=== PATIENT | female | born 1995 | race Caucasian/White ===

== ENCOUNTER 2022-04-07 00:30 | Inpatient (IN) | payer MEDICAID, SELFPAY ==
[2022-04-07 00:49] VITALS: BMI 23.0
[2022-04-07 01:05] LABS: Basophils # 0.1 K/mm3 (0-0.2); Basophils % 0.5 % (0.1-2.0); Eosinophils % 0.3 % (0.1-12.0); Hematocrit 31.8 % (37.0-47.0); Hemoglobin 10.1 g/dL (12.2-16.2); Lymphocytes # 1.7 K/mm3 (0.7-4.5); Lymphocytes % 17.3 % (10-50); Mean Corpuscular HGB Conc 31.8 g/dL (31.8-35.4); Mean Corpuscular Hemoglobin 26.6 pg (27.0-31.2); Mean Corpuscular Volume 83.5 fl (81-99); Monocytes # 0.6 K/mm3 (0.1-1.0); Monocytes % 5.6 % (1.7-9.3); Neutrophils # 7.7 K/mm3 (1.8-7.8); Neutrophils % 76.3 % (37.0-80.0); Platelet Count 383 K/mm3 (142-424); Red Blood Count 3.81 M/mm3 (4.20-5.40); Red Cell Distribution Width 18.2 % (11.5-17.5); White Blood Count 10.1 K/mm3 (4.8-10.8)
--- NOTE | 2022-04-07 01:27 | EXP.HP ---
History of Present Illness *Admission Date: 04/07/22 *Reason for visit:: contractions *History of present illness: 26 yo presented at 36 5/7 by stated DEBORAH with contractions and active labor care at [place] and no records available at time of admission or delivery Onset of contractions 23:30 and 8cm dilation upon presentation to [facility] OB history significant for one previous cs with 3 previous successful Shortly after admission, amniotomy was performed with clear fluid noted and she progressed to rapid vaginal delivery She reports that was uncomplicated She reported GBS positive and ampicillin was started after IV placement per patient report [facility] Social History Smoking Status: Never smoker alcohol intake: never current occupational status: unemployed Travel in the last 8 weeks: None Review of Systems Review of Systems Review of systems:: pertinent systems reviewed and negative unless documented below Constitutional Constitutional: Reports system reviewed and no additional complaints, except as documented and Denies headache(s) ENT Ears, Nose, Mouth, and Throat: Denies headache(s) *Genitourinary Genitourinary: Denies abnormal vaginal bleeding and Reports other (+ contractions) *Neurologic Neurologic: Denies headache(s) and Denies other visual disturbances Meds Home Medications and Allergies New Prescriptions to Start Prescriptions: Allergies Allergy/AdvReac Type Severity Reaction Status Date / Time No Known Allergies Allergy Verified 04/07/22 00:50 Exam Data for Last 24 hours Vital signs and Labs for Last 24 Hours: Laboratory Results - last 24 hr 04/07/22 00:45: WBC 10.1, RBC 3.81 L, Hgb 10.1 L, Hct 31.8 L, MCV 83.5, MCH 26.6 L, MCHC 31.8, RDW 18.2 H, Plt Count 383, MPV 9.0, Neut % (Auto) 76.3, Lymph % (Auto) 17.3, [place] % (Auto) 5.6, Eos % (Auto) 0.3, Baso % (Auto) 0.5, Neut # (Auto) 7.7, Lymph # (Auto) 1.7, [place] # (Auto) 0.6, Eos # (Auto) 0.0, Baso # (Auto) 0.1 04/07/22 00:45: Blood Type A Positive I & O for Last 24 hours: Intake & Output 04/04/22 04/05/22 04/06/22 04/07/22 11:59 11:59 11:59 11:59 Weight 126 lb Constitutional Constitutional: no acute distress *Routine HEENT Exam Head: Present normocephalic Eye: Absent conjunctival icterus or scleral injection ENT: Present mucous membranes moist *Routine Neck Exam Neck: Present supple *Routine Respiratory Exam Respiratory: Present CTA bilaterally; Absent respiratory distress *Routine Cardiovascular Exam Cardiovascular: Present RRR *Routine Abdominal Exam Abdominal: Present soft; Absent tenderness or distended *Routine Rectal Exam Rectal:: deferred *Routine Genitalia Exam Genitalia:: normal female Comment:: cervix 8/100/0 *Routine Extremities Exam Extremities: Present edema (1+) *Routine Skin Exam Skin: Present intact and dry *Routine Neurological Exam Neurological: Present alert and oriented X3 Assessment and Plan *Assessment and plan (1) 36 weeks gestation of : Status: Acute Category: Medical Code(s): Z3A.36 - 36 weeks gestation of (2) with care elsewhere: Status: Acute Category: Medical Code(s): Z34.90 - Encounter for supervision of normal , unspecified, unspecified trimester (3) Active labor: Status: Acute Category: Medical Code(s): O60.10X0 - labor with delivery, unspecified trimester, not applicable or unspecified (4) History of section: Status: Acute Category: Surgical Code(s): Z98.891 - History of uterine scar from previous surgery (5) Patient desires vaginal after section (): Status: Acute Category: Surgical Code(s): O34.219 - Maternal care for unspecified type scar from previous delivery (6) GBS carrier: Status: Acute Category: Medical
--- NOTE | 2022-04-07 01:36 | EXP.DN ---
Delivery Note Delivery Date:: 04/07/22 Delivery Time:: 01:15 Anesthesia Type: None Was labor medically induced?: No Gestational age (weeks): 36 Infant delivered prior to 39 weeks?: Yes Justification for early elective delivery:: Active Labor Gender: Female at 1 minute: 8 at 5 minutes: 9 Delivery Procedure:: Spontaneous vaginal delivery of vigorous, live born female infant over intact perineum. Delivery uncomplicated Nuchal cord x reduced on perineum No shoulder dystocia with delivery placed in JULIAN immediately after delivery, with standard nursing assessment performed Apgars: 8 & 9 Placenta spontaneously expressed and examined; noted to be complete/intact. Vulva, vagina, and cervix inspected; no lacerations present EBL: 300 cc All sponge/needle/instrument counts correct at conclusion of procedure Placental Delivery Description: Spontaneous
[2022-04-07 02:07] VITALS: BP 120/71; PULSE 71; RESP 18; TEMP 36.6; BMI 23.0
[2022-04-07 03:55] LABS: Coronavirus 19, PCR Not Detected (NotDetected); Influenza A, PCR Not Detected (NotDetected); Influenza B, PCR Not Detected (NotDetected)
--- NOTE | 2022-04-07 14:56 | EXP.ACUTE.PN ---
Subjective *Date: 04/07/22 *Time: 14:56 Interval history: PPD #0 precipitous care at [place]; records received and reviewed today No unusual complaints today She is feeling well and reports only mild low back pain Lochia is small She is tolerating a regular diet, ambulating and voiding without difficulty She denies depression Medical Exam Vital signs and Labs for Last 24 Hours: Temp Pulse Resp BP 97.8 F 71 18 120/71 04/07/22 02:07 04/07/22 02:07 04/07/22 02:07 04/07/22 02:07 Laboratory Results - last 24 hr 04/07/22 00:45: WBC 10.1, RBC 3.81 L, Hgb 10.1 L, Hct 31.8 L, MCV 83.5, MCH 26.6 L, MCHC 31.8, RDW 18.2 H, Plt Count 383, MPV 9.0, Neut % (Auto) 76.3, Lymph % (Auto) 17.3, [place] % (Auto) 5.6, Eos % (Auto) 0.3, Baso % (Auto) 0.5, Neut # (Auto) 7.7, Lymph # (Auto) 1.7, [place] # (Auto) 0.6, Eos # (Auto) 0.0, Baso # (Auto) 0.1 04/07/22 00:45: Blood Type A Positive, Antibody Screen Negative 04/07/22 03:20: SARS-CoV-2 (PCR) Not detected, Influenza A Untype (PCR) Not detected, Influenza Type B (PCR) Not detected I & O for Labs for Last 24 Hours: Intake & Output 04/05/22 04/06/22 04/07/22 04/08/22 11:59 11:59 11:59 11:59 Weight 126 lb 0.013 oz Head: Present normal inspection Eyes: Absent eye discharge ENT: Present mucous membranes moist Respiratory: Present CTA bilaterally; Absent respiratory distress Cardiac: Present Reg Rate and Rhythm GI: Present soft; Absent distention or tenderness Comment:: uterine fundus firm below umbilicus Extremities: Absent edema Skin: Present intact and dry Assessment and Plan *Assessment and plan (1) 36 weeks gestation of : Status: Acute Category: Medical Code(s): Z3A.36 - 36 weeks gestation of (2) with care elsewhere: Status: Acute Category: Medical Code(s): Z34.90 - Encounter for supervision of normal , unspecified, unspecified trimester (3) GBS carrier: Status: Acute Category: Medical Code(s): Z22.330 - Carrier of Group B streptococcus (4) History of section: Status: Acute Category: Surgical Code(s): Z98.891 - History of uterine scar from previous surgery (5) Active labor: Status: Acute Category: Medical Code(s): O60.10X0 - labor with delivery, unspecified trimester, not applicable or unspecified (6) , delivered, current hospitalization: Status: Acute Category: Medical Code(s): O34.219 - Maternal care for unspecified type scar from previous delivery Assessment and plan all Dx Assessment and Plan All Dx:: Routine care Anticipate discharge home tomorrow
[2022-04-08 07:00] LABS: Hematocrit 26.3 % (37.0-47.0); Hemoglobin 8.4 g/dL (12.2-16.2)
[2022-04-08 08:00] VITALS: BP 115/77; PULSE 71; RESP 18; TEMP 36.6; O2SAT 96
--- NOTE | 2022-04-08 10:29 | EXP.DC.SUM ---
General Admission date:: 04/07/22 Discharge date: 04/08/22 HPI HPI HPI: 26 yo presented at 36 5/7 by stated DEBORAH with contractions and active labor care at [place] and no records available at time of admission or delivery Onset of contractions 23:30 and 8cm dilation upon presentation to [facility] OB history significant for one previous cs with 3 previous successful Shortly after admission, amniotomy was performed with clear fluid noted and she progressed to rapid vaginal delivery She reports that was uncomplicated She reported GBS positive and ampicillin was started after IV placement per patient report Hospital Course Hospital Course Hospital Course: course uncomplicated She is discharged home on PPD #1 in stable condition She is ambulating and voiding without difficulty She is tolerating a regular diet Lochia is small She has been advised that she may f/u at [facility] for exam but she would prefer to return to her regular OB's office in [place] Exam Data for Last 24 hours Vital signs and Labs for Last 24 Hours: Temp Pulse Resp BP Pulse Ox 97.8 F 71 18 115/77 96 04/08/22 08:00 04/08/22 08:00 04/08/22 08:00 04/08/22 08:00 04/08/22 08:00 Laboratory Results - last 24 hr 04/08/22 06:30: Hgb 8.4 L, Hct 26.3 L I & O for Last 24 hours: Intake & Output 04/05/22 04/06/22 04/07/22 04/08/22 11:59 11:59 11:59 11:59 Weight 126 lb 0.013 oz Constitutional Constitutional: no acute distress *Routine HEENT Exam Head: Present normocephalic Eye: Absent conjunctival icterus or scleral injection ENT: Present mucous membranes moist *Routine Neck Exam Neck: Present supple *Routine Respiratory Exam Respiratory: Present CTA bilaterally *Routine Cardiovascular Exam Cardiovascular: Present RRR *Routine Abdominal Exam Abdominal: Present soft; Absent tenderness or distended *Routine Rectal Exam Patient deferred: visual exam and digital exam *Routine Exam Patient deferred: external exam Comments: Fundus firm below umbilicus *Routine Extremities Exam Extremities: Present edema *Routine Neurological Exam Neurological: Present alert and oriented X3 Routine Psychiatric Exam Psychiatric: Present normal affect; Absent depressed Results Data Completed and Pending Labs on day of discharge: Labs from last 24 hours 04/08/22 06:30 Hgb 8.4 L Hct 26.3 L DS: Diagnosis Discharge Diagnosis (1) 36 weeks gestation of : Status: Acute (2) with care elsewhere: Status: Acute (3) Active labor: Status: Acute (4) History of section: Status: Acute (5) , delivered, current hospitalization: Status: Acute (6) GBS carrier: Status: Acute Meds Home Medications and Allergies Home Medications Medication Instructions Recorded Confirmed Type [id number] 1 mg 1 tab PO DAILY 04/07/22 04/07/22 History tablet sertraline 100 mg tablet 100 mg PO HS Depression 04/07/22 04/07/22 History New Prescriptions to Start Prescriptions: Allergies Allergy/AdvReac Type Severity Reaction Status Date / Time No Known Allergies Allergy Verified 04/07/22 00:50 Discharge Plan Disposition Patient Disposition: Home, Self-Care Discharge Order Discharge Orders: Discharge Order (Routine); Ordered 04/08/22 Ordered By: Blaire Law Follow up Plan Prescriptions/Medication Reconciliation: New ibuprofen 400 mg Tablet 800 mg PO Q6HP PRN (Reason: Mild To Moderate Pain) Qty: 0 0RF acetaminophen 325 mg Tablet 650 mg PO Q4HP PRN (Reason: Mild Pain) Qty: 0 0RF Continued sertraline 100 mg tablet 100 mg PO HS 1 mg Tablet 1 tab PO DAILY Problem Reconciliation Problems Reviewed?: Yes Patient Discharge Instructions ACTIVITY: Continue current activity DIET: regular diet Providers Prima
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
[2022-04-16 15:32] LABS: Acetone <.010 g/dL (0.000-0.010); Butalbital <1 ug/mL (1-10); Chlordiazepoxide <0.1 ug/mL (0.1-0.9); Diazepam <0.1 ug/mL (0.1-0.9); Ethanol <.010 g/dL (0.000-0.010); Isopropanol <.010 g/dL (0.000-0.010); Pentobarbital <1 ug/mL (1-5)
== END 2022-04-08 13:20 | disposition home or self-care (01) | DRG 807 ==
PROVIDERS: Admitting Provider Obstetrics & Gynecology; PCP Family Medicine; Visit Provider Obstetrics & Gynecology
DX: O60.14X0 Preterm labor third trimester with preterm delivery third trimester, not applicable or unspecified (principal); Z37.0 Single live birth; Z3A.36 36 weeks gestation of pregnancy; O99.824 Streptococcus B carrier state complicating childbirth; O34.211 Maternal care for low transverse scar from previous cesarean delivery
CPT/HCPCS: 59612; 36415; 59025; 80306; 85014; 85018; 85025; 86850; C9803; J0290; U0003; U0005